=== PATIENT | male | born 1975 | race Caucasian/White ===

== ENCOUNTER → 2018-08-24 14:59 | Outpatient (POV) | payer BC, SELFPAY | PROVIDERS: Visit Provider Dermatology | DX: Z00.00 Encounter for general adult medical examination without abnormal findings (principal) ==

== ENCOUNTER 2019-10-29 14:01 | Emergency (ER) | payer BC, SELFPAY ==
[2019-10-29 14:15] VITALS: BP 145/97; PULSE 59; RESP 16; TEMP 36.8; O2SAT 98; BMI 30.1
--- NOTE | 2019-10-29 14:15 | ECG_ITS ---
APPROVED REPORT Exam: Resting ECG HR:59 bpm ECG Measurements Heart Rate 59 AXES [place] 158 P 21 QRSd 96 QRS -14 QT 400 T 36 QTc 396 <Conclusion> Sinus bradycardia Incomplete right bundle branch block Borderline ECG Electronically signed by : Alf King, 11/01/2019 08:47:58
--- NOTE | 2019-10-29 14:15 | [facility].EDGENADL ---
ED Disposition Clinical Impression: Vertigo Disposition: Home, Self-Care Condition on Discharge: Fair Instructions: DI for Vertigo Additional Instructions: Antivert, Phenergan, and Zofran as needed for dizziness and nausea. Follow-up with your primary care doctor next week. You will need to have your blood sugar and white blood cell count rechecked. Return to the emergency room if severe dizziness, unable to walk, persistent vomiting, or any neurologic symptoms such as double vision, loss of vision, difficulty speaking, numbness or weakness of extremities. Prescriptions: Promethazine HCl [Phenergan 25mg tab] 25 mg PO Q6HP PRN #15 tab PRN Reason: Nausea And Vomiting Transmission Status: Received by [facility] #[id number] Meclizine HCl [Antivert 25mg tablet] 25 mg PO TIDP PRN #15 tab PRN Reason: Vertigo Transmission Status: Received by [facility] #[id number] Ondansetron [Zofran 4mg ODT] 4 mg PO TIDP PRN #15 tab.rapdis PRN Reason: Nausea And Vomiting Transmission Status: Received by [facility] #[id number] Referrals: Avinash Albright MD [Primary Care Provider] - - Critical Care Critical Care Time: No Attestation: On 10/29/19, the high probability of a clinically significant, sudden or life threatening deterioration of the following system(s) required my full and direct attention, intervention and personal management. The time I documented below is in addition to time spent performing reported procedures but includes the following listed in this critical care notation. Medical Decision Making - Larry Inquiry Pt receiving controlled substance: No Vital Signs: 10/29/19 14:15 10/29/19 15:13 10/29/19 15:49 Temperature 98.2 F Temperature Source Oral Pulse Rate Pulse Rate [Left Radial] 59 L 65 75 Respiratory Rate 16 Blood Pressure Blood Pressure [Right Radial Artery] 145/97 H 154/92 H 151/98 H Blood Pressure Mean [Right Radial Artery] 113 112 115 Blood Pressure Source [Right Radial Artery] Automatic Cuff Automatic Cuff Blood Pressure Position Blood Pressure Position [Right Radial Artery] Sitting Sitting Sitting 02 Sat by Pulse Oximetry 98 98 98 Oxygen Delivery Method Room Air Room Air Room Air 10/29/19 15:50 10/29/19 16:45 Temperature 98 F Temperature Source Oral Pulse Rate 62 Pulse Rate [Left Radial] 59 L Respiratory Rate 16 Blood Pressure 136/68 Blood Pressure [Right Radial Artery] 145/97 H Blood Pressure Mean [Right Radial Artery] 113 Blood Pressure Source [Right Radial Artery] Automatic Cuff Blood Pressure Position Sitting Blood Pressure Position [Right Radial Artery] Sitting 02 Sat by Pulse Oximetry 96 Oxygen Delivery Method Room Air Room Air - Lab Data Lab Results 10/29/19 14:35: WBC 18.5 H, RBC 5.13, Hgb 17.7, Hct 47.8, MCV 93.2, MCH 34.5 H, MCHC 37.1 H, RDW 13.5, Plt Count 198, MPV 7.4, Neut % (Auto) 87.2 H, Lymph % (Auto) 8.4 L, Weld % (Auto) 3.3, Eos % (Auto) 0.5, Baso % (Auto) 0.6, Neut # (Auto) 16.1 H, Lymph # (Auto) 1.5, Weld # (Auto) 0.6, Eos # (Auto) 0.1, Baso # (Auto) 0.1, Total Counted 100, Neutrophils % (Manual) 86 H, Lymphocytes % (Manual) 11, Monocytes % (Manual) 3, Platelet Estimate Normal, RBC Morphology Normal 10/29/19 14:35: Sodium 136, Potassium 4.0, Chloride 101, Carbon Dioxide 27, Anion Gap 12.0, BUN 12, Creatinine 0.80, Estimated Creat Clear 160, Estimated GFR 106, Est GFR ( Amer) 128, Glucose 198 H, Calcium 10.1, Total Bilirubin 0.4, AST 45, ALT 62, Alkaline Phosphatase 77, Troponin I < 0.01, Total Protein 8.2, Albumin 4.8, Globulin 3.4 H, Albumin/Globulin Ratio 1.4 10/29/19 14:35: Hemoglobin A1c 5.3 Result diagrams: 10/29/19 14:35 10/29/19 14:35 Orders (Tests/Meds): ED MEDICATIONS Discontinued Medications Generic Name Dose Route Start Last Admin Trade Name Freq PRN Reason Stop Dose Admin Meclizine HCl 25 mg 10/29/19 14:21 10/29/19 14:40 Antivert 25mg Tablet PO 10/29/19 14:22 25 mg
--- NOTE | 2019-10-29 14:21 | XR_ITS ---
PROCEDURE: XR CHEST PORTABLE Patient Age:44Y CLINICAL HISTORY: dizziness. Prior smoker. COMPARISON: No exams were available for comparison FINDINGS: Portable AP upright chest- The cardiomediastinal silhouette and pulmonary vascularity are within normal limits.. ekg monitor leads are in place The lungs are clear without infiltrates, suspicious nodules, or pleural effusions. No acute bony abnormalities. IMPRESSION: Lungs clear with no acute findings but Dictated by: Shayan Cartagena MD 10/29/2019 15:34 Electronically signed by Shayan Cartagena MD in [place] 10/29/2019 15:34
[2019-10-29 14:46] LABS: Basophils # 0.1 K/mm3 (0-0.2); Basophils % 0.6 % (0.1-2.0); Eosinophils # 0.1 K/mm3 (0.0-0.4); Eosinophils % 0.5 % (0.1-12.0); Hematocrit 47.8 % (42.0-52.0); Hemoglobin 17.7 g/dL (14.1-18.0); Lymphocytes # 1.5 K/mm3 (0.7-4.5); Lymphocytes % 8.4 % (10-50); Mean Corpuscular HGB Conc 37.1 g/dL (31.8-35.4); Mean Corpuscular Hemoglobin 34.5 pg (27.0-31.2); Mean Corpuscular Volume 93.2 fl (80-94); Mean Platelet Volume 7.4 fl (7.4-10.4); Monocytes # 0.6 K/mm3 (0.1-1.0); Monocytes % 3.3 % (1.7-9.3); Neutrophils # 16.1 K/mm3 (1.8-7.8); Neutrophils % 87.2 % (37.0-80.0); Platelet Count 198 K/mm3 (142-424); Red Blood Count 5.13 M/mm3 (4.60-6.20); Red Cell Distribution Width 13.5 % (11.5-17.5); White Blood Count 18.5 K/mm3 (4.8-10.8)
[2019-10-29 14:51] LABS: MANUAL DIFFERENTIAL MANUAL DIFFERENTIAL (MANUAL DIFF)
[2019-10-29 14:55] LABS: Alanine Aminotransferase 62 U/L (12-78); Albumin Level 4.8 g/dl (3.5-5.0); Albumin/Globulin Ratio 1.4 (1.1-1.8); Alkaline Phosphatase 77 U/L (38-126); Aspartate Amino Transferase 45 U/L (17-59); Bilirubin,Total 0.4 mg/dl (0.2-1.3); Blood Urea Nitrogen 12 mg/dl (9-20); Calcium 10.1 mg/dl (8.4-10.2); Carbon Dioxide 27 mmol/L (22.0-30.0); Chloride 101 mmol/L (98-107); Creatinine Clearance Estimated 160 mL/min (50-200); Estimated Glomerular Filt Rate 106 ml/min (>60); GFR (African American) 128 ML/MIN (>60); Globulin 3.4 g/dL (1.3-3.2); Glucose 198 mg/dl (74-100); Sodium 136 mmol/L (136-145); Total Protein,Serum 8.2 g/dl (6.3-8.2)
[2019-10-29 15:07] LABS: Lymphocytes % 11 % (10-50); Monocytes % 3 % (2-9); Neutrophils % 86 % (42-76); RBC Morphology Normal; Total Cells Counted 100
[2019-10-29 15:08] LABS: Platelet Estimate Normal; Troponin I < 0.01 ng/ml (0.00-0.034)
[2019-10-29 15:13] VITALS: BP 154/92; PULSE 65; O2SAT 98
[2019-10-29 15:49] VITALS: BP 151/98; PULSE 75; O2SAT 98
[2019-10-29 15:50] VITALS: BP 145/97; PULSE 59; O2SAT 96
--- NOTE | 2019-10-29 15:52 | PC.NURSE ---
Pt eating applesauce at this time.
[2019-10-29 16:08] LABS: Hemoglobin A1C 5.3 % (4.0-6.0)
--- NOTE | 2019-10-29 16:30 | PC.NURSE ---
Pt able to ambulate around the room without assistance. Pt states that he does still feel dizzy but not as bad as he was earlier.
[2019-10-29 16:45] VITALS: BP 136/68; PULSE 62; RESP 16; TEMP 36.6; O2SAT 97
== END 2019-10-29 16:52 | disposition home or self-care (01) ==
PROVIDERS: Emergency Provider Emergency Medicine; PCP Internal Medicine Adolescent Medicine
DX: R42 Dizziness and giddiness (principal); Z90.09 Acquired absence of other part of head and neck
CPT/HCPCS: 71045; 80053; 83036; 84484; 85007; 85025; 93005; 96374; 96375; 99283; J2405

== ENCOUNTER → 2022-02-28 06:17 | Outpatient (CLI) | payer BC, SELFPAY ==
[2022-02-28 18:09] LABS: Chloride 98 mmol/L (98-107); Potassium 4.6 mmoL/L (3.5-5.1); Sodium 139 mmol/L (136-145)
[2022-02-28 18:12] LABS: Alanine Aminotransferase 55 U/L (12-78); Albumin Level 4.3 g/dl (3.5-5.0); Albumin/Globulin Ratio 1.5 (1.1-1.8); Alkaline Phosphatase 109 U/L (38-126); Anion Gap 14.6 mEq/L (5-15); Aspartate Amino Transferase 52 U/L (17-59); Bilirubin,Total 0.8 mg/dl (0.2-1.3); Blood Urea Nitrogen 12 mg/dl (9-20); Carbon Dioxide 31 mmol/L (22.0-30.0); Cholesterol 206 mg/dl (140-200); Estimated Glomerular Filt Rate 105 ml/min (>60); GFR (African American) 126 ML/MIN (>60); Globulin 2.8 g/dL (1.3-3.2); Total Protein,Serum 7.1 g/dl (6.3-8.2)
[2022-02-28 18:13] LABS: Basophils # 0.1 K/mm3 (0-0.2); Basophils % 1.2 % (0.1-2.0); Calcium 9.4 mg/dl (8.4-10.2); Chol/HDL Ratio 10.3 (1-3.5); Eosinophils # 0.3 K/mm3 (0.0-0.4); Eosinophils % 2.9 % (0.1-12.0); Glucose 260 mg/dl (74-100); HDL Cholesterol 20 mg/dl (40-60); Hematocrit 48.9 % (42.0-52.0); Hemoglobin 16.7 g/dL (14.1-18.0); Lymphocytes # 2.1 K/mm3 (0.7-4.5); Lymphocytes % 24.1 % (10-50); Mean Corpuscular HGB Conc 34.2 g/dL (31.8-35.4); Mean Corpuscular Hemoglobin 33.1 pg (27.0-31.2); Mean Corpuscular Volume 96.9 fl (80-94); Mean Platelet Volume 8.5 fl (7.4-10.4); Monocytes # 0.4 K/mm3 (0.1-1.0); Monocytes % 4.5 % (1.7-9.3); Neutrophils # 5.9 K/mm3 (1.8-7.8); Neutrophils % 67.4 % (37.0-80.0); Platelet Count 200 K/mm3 (142-424); Red Blood Count 5.05 M/mm3 (4.60-6.20); White Blood Count 8.8 K/mm3 (4.8-10.8)
[2022-02-28 18:20] LABS: Triglycerides 914 mg/dl (30-150)
[2022-02-28 18:23] LABS: Direct LDL Cholesterol 43.51 mg/dL (100-129)
[2022-02-28 18:43] LABS: Thyroid Stimulating Hormone 2.51 uIU/mL (0.465-4.68)
[2022-02-28 19:53] LABS: Hemoglobin A1C 8.2 % (4.0-6.0)
== END ==
PROVIDERS: PCP Family Medicine; Visit Provider Student in an Organized Health Care Education/Training Program
DX: Z00.00 Encounter for general adult medical examination without abnormal findings (principal); Z79.899 Other long term (current) drug therapy
CPT/HCPCS: 80053; 80061; 83036; 84443; 85025

== ENCOUNTER → 2022-09-08 16:58 | Outpatient (CLI) | payer BC, SELFPAY ==
[2022-09-08 17:24] LABS: Alanine Aminotransferase 43 U/L (12-78); Albumin Level 4.5 g/dl (3.5-5.0); Albumin/Globulin Ratio 1.7 (1.1-1.8); Alkaline Phosphatase 76 U/L (38-126); Aspartate Amino Transferase 35 U/L (17-59); Bilirubin,Total 0.6 mg/dl (0.2-1.3); Blood Urea Nitrogen 13 mg/dl (9-20); Calcium 9.2 mg/dl (8.4-10.2); Carbon Dioxide 28 mmol/L (22.0-30.0); Chloride 103 mmol/L (98-107); Chol/HDL Ratio 6.4 (1-3.5); Cholesterol 147 mg/dl (140-200); Estimated Glomerular Filt Rate 91 ml/min (>60); GFR (African American) 110 ML/MIN (>60); Globulin 2.7 g/dL (1.3-3.2); Glucose 151 mg/dl (74-100); HDL Cholesterol 23 mg/dl (40-60); Sodium 138 mmol/L (136-145); Total Protein,Serum 7.2 g/dl (6.3-8.2); Triglycerides 372 mg/dl (30-150); VLDL Cholesterol 74 mg/dL (0-40)
[2022-09-08 17:35] LABS: Direct LDL Cholesterol 68.06 mg/dL (100-129)
== END ==
PROVIDERS: PCP Family Medicine; Visit Provider Family Medicine
DX: E11.9 Type 2 diabetes mellitus without complications (principal); E78.5 Hyperlipidemia, unspecified; Z79.84 Long term (current) use of oral hypoglycemic drugs
CPT/HCPCS: 80053; 80061; 83036

== ENCOUNTER 2023-08-04 20:21 | Outpatient (CLI) | payer BC, SELFPAY | END 2023-08-04 23:59 | LOC: LAB.DROPOF 20:21 | PROVIDERS: PCP Nurse Practitioner Family; Visit Provider Nurse Practitioner Family | DX: J02.9 Acute pharyngitis, unspecified (principal) | CPT/HCPCS: 87070 ==

== ENCOUNTER 2023-08-12 15:36 | Outpatient (CLI) | payer BC, SELFPAY ==
--- NOTE | 2023-08-12 15:49 | US_ITS ---
PROCEDURE INFORMATION: Exam: US Left Breast, Complete Exam date and time: 08/12/2023 4:04 PM Age: 48 years old Clinical indication: Palpable abnormality in the left breast TECHNIQUE: Imaging protocol: Complete ultrasound of all four quadrants of the left breast and the retroareolar regions, including ultrasound of the axilla when performed. COMPARISON: No relevant prior studies available. FINDINGS: Breast: Sonographic images of the left breast including the retroareolar region, all 4 quadrants and the axilla do not demonstrate any solid or cystic masses. Cursors were placed over what appears to be normal fibrofatty tissue in the 4 o'clock axis 4 cm from the nipple where the patient reports a palpable abnormality. No architectural distortion or acoustical shadowing. No skin thickening or axillary adenopathy. IMPRESSION: A skin marker should be placed over the area of palpable concern followed by a diagnostic unilateral mammogram with spot compression views for full evaluation of the patient's complaint of a palpable abnormality. ASSESSMENT: BI-RADS Category 0: Incomplete- Need Additional Imaging Evaluation and/or Prior Mammograms for Comparison.
== END 2023-08-12 23:59 ==
LOC: RAD 15:40
PROVIDERS: PCP Nurse Practitioner Family; Visit Provider Nurse Practitioner Family
DX: N63.20 Unspecified lump in the left breast, unspecified quadrant (principal)
CPT/HCPCS: 76641

== ENCOUNTER 2023-09-09 14:47 | Outpatient (CLI) | payer BC, SELFPAY ==
--- NOTE | 2023-09-09 14:48 | MM_ITS ---
PROCEDURE INFORMATION: Exam: Left Diagnostic Breast Tomosynthesis Exam date and time: 09/09/2023 2:44 PM Age: 48 years old Clinical indication: Left breast; palpable mass TECHNIQUE: Imaging protocol: Left Diagnostic tomosynthesis and 2D mammography including computer-aided detection (CAD) when performed. Unilateral or bilateral exam. COMPARISON: US BREAST LT COMPLETE 08/12/2023 4:04 PM FINDINGS: MAMMOGRAPHY: Breast composition: The breast is entirely fatty Breast mammogram findings: There is no breast tissue identified. A skin marker was placed over an area of palpable concern in the left lateral breast. Adipose tissue only is seen. There is no stellate mass, architectural distortion or suspicious microcalcifications to suggest malignancy. No skin thickening or axillary adenopathy. Review of the patient's most recent sonogram dated 08/12/2023 did not demonstrate any suspicious findings IMPRESSION: Palpable abnormality in the left breast corresponds to normal adipose tissue on mammography and sonography. No breast tissue is identified.Further evaluation of a palpable abnormality should be based on clinical grounds regardless of radiographic findings or lack thereof. ASSESSMENT: BI-RADS Category 1: Negative
== END 2023-09-09 23:59 ==
LOC: RAD 14:48
PROVIDERS: PCP Family Medicine; Visit Provider Nurse Practitioner Family
DX: N63.20 Unspecified lump in the left breast, unspecified quadrant (principal)
CPT/HCPCS: 77061; 77065; G0279

== ENCOUNTER 2024-02-09 15:35 | Outpatient (CLI) | payer BC, SELFPAY ==
[2024-02-09 17:00] LABS: Hemoglobin A1C 7.5 % (4.0-6.0)
[2024-02-09 17:08] LABS: Creatinine,Urine Random 87 mg/dL (Not Estab.)
[2024-02-09 17:12] LABS: Microalbumin/Creatinine Ratio 8.6
[2024-02-09 17:38] LABS: Alanine Aminotransferase 58 U/L (12-78); Albumin Level 4.3 g/dl (3.5-5.0); Albumin/Globulin Ratio 1.3 (1.1-1.8); Alkaline Phosphatase 79 U/L (38-126); Anion Gap 13.6 mEq/L (5-15); Aspartate Amino Transferase 44 U/L (17-59); Bilirubin,Total 0.8 mg/dl (0.2-1.3); Blood Urea Nitrogen 13 mg/dl (9-20); Calcium 9.9 mg/dl (8.4-10.2); Carbon Dioxide 28 mmol/L (22.0-30.0); Chloride 101 mmol/L (98-107); Estimated Glomerular Filt Rate 104 ml/min (>60); GFR (African American) 125 ML/MIN (>60); Globulin 3.2 g/dL (1.3-3.2); Glucose 223 mg/dl (74-100); Potassium 4.6 mmoL/L (3.5-5.1); Sodium 138 mmol/L (136-145); Total Protein,Serum 7.5 g/dl (6.3-8.2)
== END 2024-02-09 23:59 | disposition home or self-care (01) ==
LOC: LAB.DROPOF 02-10 15:36
PROVIDERS: PCP Family Medicine; Visit Provider Family Medicine
DX: E11.9 Type 2 diabetes mellitus without complications (principal); E78.5 Hyperlipidemia, unspecified
CPT/HCPCS: 80053; 82043; 82570; 83036

== ENCOUNTER 2024-10-28 08:29 | Outpatient (CLI) | payer BC, SELFPAY ==
[2024-10-28 16:36] LABS: Basophils % 0.4 % (0.1-2.0); Eosinophils # 0.1 Kmm3 (0.0-0.4); Eosinophils % 1.8 % (0.1-12.0); Hematocrit 48.9 % (42.0-52.0); Hemoglobin 16.5 g/dL (14.1-18.0); Immature Granulocytes # 0.02 10^3uL; Immature Granulocytes % 0.3 %; Lymphocytes # 2.4 K/mm3 (0.7-4.5); Lymphocytes % 30.7 % (10-50); Mean Corpuscular HGB Conc 33.7 g/dL (31.8-35.4); Mean Corpuscular Hemoglobin 31.7 pg (27.0-31.2); Mean Corpuscular Volume 93.9 fl (80-94); Mean Platelet Volume 10.1 fl (7.4-10.4); Monocytes # 0.4 K/mm3 (0.1-1.0); Monocytes % 5.6 % (1.7-9.3); Neutrophils # 4.8 K/mm3 (1.8-7.8); Neutrophils % 61.2 % (37.0-80.0); Nucleated Red Blood Cells # 0 10^3/uL; Nucleated Red Blood Cells % 0 %; Platelet Count 177 K/mm3 (142-424); Red Blood Count 5.21 M/mm3 (4.60-6.20); Red Cell Distribution Width 12.8 % (11.5-17.5); Red Cell Distribution Width-SD 43.8 fL; White Blood Count 7.8 K/mm3 (4.8-10.8)
[2024-10-28 17:14] LABS: Hemoglobin A1C 5.7 % (4.0-6.0)
[2024-10-28 17:23] LABS: Alanine Aminotransferase 50 U/L (12-78); Albumin Level 4.8 g/dl (3.5-5.0); Albumin/Globulin Ratio 1.8 (1.1-1.8); Alkaline Phosphatase 75 U/L (38-126); Anion Gap 11.3 mEq/L (5-15); Aspartate Amino Transferase 34 U/L (17-59); Bilirubin,Total 0.8 mg/dl (0.2-1.3); Blood Urea Nitrogen 14 mg/dl (9-20); Calcium 9.4 mg/dl (8.4-10.2); Carbon Dioxide 25 mmol/L (22.0-30.0); Chloride 106 mmol/L (98-107); Chol/HDL Ratio 5.4 (1-3.5); Cholesterol 113 mg/dl (140-200); Estimated Glomerular Filt Rate 103 ml/min (>60); GFR (African American) 125 ML/MIN (>60); Globulin 2.6 g/dL (1.3-3.2); Glucose 119 mg/dl (74-100); HDL Cholesterol 21 mg/dl (40-60); Potassium 4.3 mmoL/L (3.5-5.1); Sodium 138 mmol/L (136-145); Total Protein,Serum 7.4 g/dl (6.3-8.2); Triglycerides 298 mg/dl (30-150); VLDL Cholesterol 60 mg/dL (0-40)
[2024-10-28 17:34] LABS: Direct LDL Cholesterol 55.96 mg/dL (100-129)
[2024-10-28 17:40] LABS: 25-OH Vitamin D, Total 62.5 ng/mL (30-100)
[2024-10-28 17:53] LABS: Thyroid Stimulating Hormone 3.47 uIU/mL (0.465-4.68)
[2024-10-28 18:00] LABS: HIV Combo NEGATIVE (Negative)
[2024-10-28 19:00] LABS: Hepatitis C Ab Qual. W/ RFX NEGATIVE (Negative)
== END 2024-10-28 23:59 | disposition home or self-care (01) ==
LOC: LAB.DROPOF 11-01 11:21
PROVIDERS: PCP Family Medicine; Visit Provider Nurse Practitioner Family
DX: E78.5 Hyperlipidemia, unspecified (principal); E11.9 Type 2 diabetes mellitus without complications; I10 Essential (primary) hypertension
CPT/HCPCS: 80053; 80061; 82306; 83036; 84443; 85025; 86803; 87389